=== PATIENT | female | born 2000 | race African-American/Black ===

== ENCOUNTER 2022-03-15 17:52 | Emergency (ER) | payer MEDICAID ==
[~2022-03-15] VITALS: Ht 170.2 cm; Wt 97.5 kg
--- NOTE | 2022-03-15 18:00 | NUR ---
RECEIVED PT 22 YRS FEMALE FROM HOME C/O SKIN LAUCERATION IN BOTH WRIST CUT WITH GLASSE
--- NOTE | 2022-03-15 18:30 | NUR ---
CLEAN WOUND IN BOTH WRIST
--- NOTE | 2022-03-15 19:25 | NUR ---
HAND OFF CLEAR RN
[2022-03-15] MEDS ORDERED: IBUPROFEN 400 MG TABLET PO ONE (19:30)
[2022-03-15] MEDS ORDERED: TDAP [DIPH/PERTUSSIS/TET] 0.5 ML VIAL IM ONE ×2 (19:30→19:34)
[2022-03-15] MEDS ORDERED: CEPHALEXIN MONOHYDRATE 500 MG CAPSULE PO ONE ×2 (19:30→19:33)
[2022-03-15] MEDS ORDERED: IBUPROFEN 400 MG TABLET ONE (19:34)
[2022-03-15] MEDS ORDERED: CEPH500C2 PO (20:11)
--- NOTE | 2022-03-15 20:31 | NUR ---
Patient discharged to home in stable condition. Written and verbal after care instructions given. Patient verbalizes understanding of instruction.
[2022-03-15 20:32] VITALS: BP 115/80
== END 2022-03-15 20:32 | disposition home or self-care (01) ==
LOC: ER 18:42
DX: S61.512A Laceration without foreign body of left wrist, initial encounter (principal); S61.511A Laceration without foreign body of right wrist, initial encounter; W25.XXXA Contact with sharp glass, initial encounter; Y93.89 Activity, other specified; Y92.89 Other specified places as the place of occurrence of the external cause; Y99.8 Other external cause status
CPT/HCPCS: 73110; 90715